=== PATIENT | female | born 1930 | race Caucasian/White ===

== ENCOUNTER 2016-07-13 15:09 | Emergency (ER) | payer OTHER ==
[2016-07-13 15:22] VITALS: TEMP 98.2; BMI 24.4
--- NOTE | 2016-07-13 15:44 | PDOC ---
History of Present Illness - History of Present Illness Initial Comments: 07/13/16 16:06 The pt is a 86 year old female with a PMH of colon Ca, DM type 2, CAD, HDl, hypothyroidism who presents to ED complaining of left knee pain that started yesterday and progressively got worse. The pain is located on external part of her knee, more painful when ambulating. She applied ice without any improvement. She denies joint swelling, fever, erythema, limited ROM. She denies chest pain, SOB, palpitations. She denies N/V, diarrhea, abdominal pain, constipation, dysuria, increased frequency, urgency. 07/13/16 16:11 <Annalee Mendoza - Last Filed: 07/13/16 16:06> - History of Present Illness Initial Comments: 07/13/16 16:18 The patient ambulated a significant degree yesterday. <An Sanchez - Last Filed: 07/13/16 16:18> <Waylon Uriarte - Last Filed: 07/13/16 16:34> - General Chief Complaint: Pain Stated Complaint: LT SIDE PAIN, WEAKNESS Time Seen by Provider: 07/13/16 15:32 Past History - Past Medical History Anemia: No Asthma: No Cancer: Yes (COLON CA SURGERY 2011) Cardiac Disorders: Yes CVA: No COPD: No CHF: No Dementia: No Diabetes: Yes GI Disorders: Yes Disorders: No HTN: Yes Hypercholesterolemia: Yes Liver Disease: No Seizures: No Thyroid Disease: Yes - Surgical History Abdominal Surgery: Yes (COLON RESECTION 2011) Appendectomy: No Cardiac Surgery: No Cholecystectomy: No Lung Surgery: No Neurologic Surgery: No Orthopedic Surgery: Yes (RIGHT THR, FX WRIST) - Immunization History Immunization Up to Date: Yes - Psycho/Social/Smoking Cessation Hx Anxiety: No Suicidal Ideation: No Smoking Status: No Smoking History: Never smoked Have you smoked in the past 12 months: No Number of Cigarettes Smoked Daily: 0 If you are a former smoker, when did you quit?: STOPPED 1994 Information on smoking cessation initiated: No Hx Alcohol Use: No Drug/Substance Use Hx: No Substance Use Type: None Hx Substance Use Treatment: No <Annalee Mendoza - Last Filed: 07/13/16 16:06> <An Sanchez - Last Filed: 07/13/16 16:18> <Waylon Uriarte - Last Filed: 07/13/16 16:34> - Past Medical History Allergies/Adverse Reactions: Allergies Allergy/AdvReac Type Severity Reaction Status Date / Time No Known Drug Allergies Allergy Verified 11/22/13 19:34 Home Medications: Ambulatory Orders Glipizide [Glucotrol -] 20 mg PO DAILY 01/10/12 Insulin (Levemir) [Levemir Flexpen -] 0 units SQ ACDIN 01/10/12 Insulin (Novolog) [Novolog Flexpen -] 0 units SQ AC 01/10/12 Levothyroxine [Synthroid -] 112 mcg PO DAILY 01/10/12 Losartan Potassium 25 mg PO DAILY 01/10/12 Metoprolol Tartrate [Lopressor -] 50 mg PO DAILY 01/14/12 Atorvastatin Calcium [Lipitor] 10 mg PO DAILY 11/27/12 Aspirin [ASA -] 81 mg PO DAILY #0 01/28/14 Guar Gum [Benefiber] 1 each PO BID #0 packet 01/28/14 *Physical Exam - Vital Signs Last Vital Signs Temp Pulse Resp BP Pulse Ox 98.2 F 71 20 122/69 98 07/13/16 15:20 07/13/16 15:20 07/13/16 15:20 07/13/16 15:20 07/13/16 15:20 <Annalee Mendoza - Last Filed: 07/13/16 16:06> - Vital Signs Last Vital Signs Temp Pulse Resp BP Pulse Ox 98.2 F 71 20 122/69 98 07/13/16 15:20 07/13/16 15:20 07/13/16 15:20 07/13/16 15:20 07/13/16 15:20 <An Sanchez - Last Filed: 07/13/16 16:18> - Vital Signs Last Vital Signs Temp Pulse Resp BP Pulse Ox 98.2 F 71 20 122/69 98 07/13/16 15:20 07/13/16 15:20 07/13/16 15:20 07/13/16 15:20 07/13/16 15:20 <Waylon Uriarte - Last Filed: 07/13/16 16:34> *DC/Admit/Observation/Transfer <Annalee Mendoza - Last Filed: 07/13/16 16:06> <An Sanchez - Last Filed: 07/13/16 16:18> <Waylon Uriarte - Last Filed: 07/13/16 16:34> Diagnosis at time of Disposition: Knee pain, left - Referrals Referrals: Steve Adam MD [Primary Care Provider] - Addendum entered and electronically signed by Annalee Mendoza RES 16:59: Progress Note - Progress Note Progress Note: REVIEW OF SYSTEMS CONSTITUTIONAL: Absent: fever, chills, diaphoresis, generalized weakness, malaise, loss of appetite, weight change HEENT: Absent: rhinorrhea, nasal congestion, throat pain, throat swelling, difficulty swallowing, mouth swelling, ear pain, eye pain, visual changes CARDIOVASCULAR: Absent: chest pain, syncope, palpitations, irregular heart rate, lightheadedness , peripheral edema RESPIRATORY: Absent: cough, shortness of breath, dyspnea with exertion, orthopnea, wheezing, stridor, hemoptysis GASTROINTESTINAL: Absent: abdominal pain, abdominal distension, nausea, vomiting, diarrhea, constipation, melena, hematochezia GENITOURINARY: Absent: dysuria, frequency, urgency, hesitancy, hematuria, flank pain, genital pain MUSCULOSKELETAL: pain on left side of the knee, nl ROM in all extremities, crepitus in knee B/L, no swelling in left knee. Absent: myalgia, back pain, neck pain SKIN: Absent: rash, itching, pallor HEMATOLOGIC/IMMUNOLOGIC: Absent: easy bleeding, easy bruising, lymphadenopathy, frequent infections ENDOCRINE: Absent: unexplained weight gain, unexplained weight loss, heat intolerance, cold intolerance NEUROLOGIC: Absent: headache, focal weakness or paresthesias, dizziness, unsteady gait, seizure, mental status changes, bladder or bowel incontinence PSYCHIATRIC: Absent: anxiety, depression, suicidal or homicidal ideation, hallucinations. GENERAL: The patient is awake, alert, and fully oriented, in no acute distress. HEAD: Normal with no signs of trauma. EYES: PERRL, extraocular movements intact, sclera anicteric, conjunctiva clear. No ptosis. ENT: Ears normal, nares patent, oropharynx clear without exudates, moist mucous membranes. NECK: Trachea midline, full range of motion, supple. LUNGS: Breath sounds equal, clear to auscultation bilaterally, no wheezes, no crackles, no accessory muscle use. HEART: Regular rate and rhythm, S1, S2 without murmur, rub or gallop. ABDOMEN: Soft, nontender, nondistended, normoactive bowel sounds, no guarding, no rebound, no hepatosplenomegaly, no masses. EXTREMITIES: 2+ pulses, warm, well-perfused, no edema. NEUROLOGICAL: Normal speech, gait not observed. PSYCH: Normal mood, normal affect. SKIN: Warm, dry, normal turgor, no rashes or lesions noted We ordered x ray of the left knee. Addendum entered and electronically signed by Annalee Mendoza RES 17:01: Progress Note - Progress Note Progress Note: X ray results are negative for fracture or dislocation. We will discharge the pt with the recommendation to f/u with PCP and take Tylenol as needed.
--- NOTE | 2016-07-13 16:01 | PDOC ---
Attending Attestation - Resident Resident Name: Annalee Mendoza - ED Attending Attestation I have performed the following: I have examined & evaluated the patient, The case was reviewed & discussed with the resident, I agree w/resident's findings & plan, Exceptions are as noted - HPI HPI: 07/13/16 15:59 The patient is an 86 year old female with extensive past medical history who presents with left lateral knee pain. She denies injury. The pain is mild. It is worsened by ambulation. No rash. No fever. No swelling of the knee. She does report significant increase in the degree of ambulation that she performed yesterday, and suspects that this is what caused the knee pain. 07/13/16 16:17 - Physicial Exam PE: 07/13/16 16:00 She is well appearing and in no acute distress. No bony knee tenderness. There is mild soft tissue tenderness at the left lateral knee. Normal range of motion. Significant crepitance in bilateral knees with range of motion. She ambulates well. 07/13/16 16:16 - Medical Decision Making 07/13/16 16:16 She is well-appearing and in no acute distress I have an extremely low index of suspicion for acute bony injury I suspect arthritis exacerbation secondary to overexertion yesterday Clinical impression: Acute exacerbation of chronic osteoarthritis of the left knee 07/13/16 16:21 Case discussed in detail with oncoming Emergency Physician including history, physical exam and ancillary studies. Oncoming Emergency Physician has assumed care for the patient and will complete the evaluation and treatment. Discharge Disposition - Diagnosis Knee pain, left - Discharge Dispostion Last Admission D/C Date: 01/19/12
--- NOTE | 2016-07-13 17:07 | PDOC ---
*Physical Exam - Vital Signs Last Vital Signs Temp Pulse Resp BP Pulse Ox 98.2 F 71 20 122/69 98 07/13/16 15:20 07/13/16 15:20 07/13/16 15:20 07/13/16 15:20 07/13/16 15:20 ED Treatment Course - RADIOLOGY Radiology Studies Ordered: Category Date Time Status KNEE 2 POS-LEFT [RAD] Stat Radiology 07/13/16 16:02 Completed Medical Decision Making - Medical Decision Making 07/13/16 17:05 I accidentally signed my previous note. This is a continuation. X ray of left knee is negative for pathology. The pt will be discharged home to take OTV pain medications and f/u with PCP. *DC/Admit/Observation/Transfer Diagnosis at time of Disposition: Knee pain, left - Discharge Dispostion Condition at time of disposition: Good Admit: No - Referrals Referrals: Steve Adam MD [Primary Care Provider] - - Patient Instructions Additional Instructions: Please take Tylenol as needed for pain. See your primary care physician in a week. If your symptoms worsen come to emergency room as soon as possible. - Post Discharge Activity
[2016-07-13 17:30] VITALS: BP 165/84; PULSE 69
== END 2016-07-13 17:30 | disposition short-term general hospital (02) ==
LOC: JER 15:09
DX: M25.562 Pain in left knee (principal); Z85.038 Personal history of other malignant neoplasm of large intestine; E03.9 Hypothyroidism, unspecified; I25.10 Atherosclerotic heart disease of native coronary artery without angina pectoris; E78.00 Pure hypercholesterolemia, unspecified; E11.9 Type 2 diabetes mellitus without complications
CPT/HCPCS: 73560-TC-LT; 99282-25

== ENCOUNTER 2017-09-09 14:35 | Emergency (ER) | payer OTHER ==
--- NOTE | 2017-09-09 15:13 | PDOC ---
History of Present Illness - General History Source: Patient Exam Limitations: No Limitations - History of Present Illness Initial Comments: 09/09/17 17:26 The patient is an 87 year old female with past medical history of colon cancer, type 2 diabetes, CAD (no stents), hypothyroidism, and hyperlipidemia who was sent to the ED by Dr. Valentin for persistent cough and congestion for the past week. The patient states she had the flu last week and has since gotten better, yet her productive cough persists. She states she is producing yellow phlegm and has an associated chest tightness and wheeze. She denies any chest pain or leg swelling. She denies any hemoptysis, fevers, chills, nausea, vomiting, diarrhea, or urinary complaints. <Nani Smith - Last Filed: 09/09/17 17:26> <Ulises Figueroa - Last Filed: 09/09/17 18:57> - General Chief Complaint: Respiratory Stated Complaint: FLU LIKE ILLNESS Time Seen by Provider: 09/09/17 15:09 Past History <Nani Smith - Last Filed: 09/09/17 17:26> - Past Medical History Anemia: No Asthma: No Cancer: Yes (COLON CA SURGERY 2011) Cardiac Disorders: Yes CVA: No COPD: No CHF: No Dementia: No Diabetes: Yes GI Disorders: Yes Disorders: No HTN: Yes Hypercholesterolemia: Yes Liver Disease: No Seizures: No Thyroid Disease: Yes - Surgical History Abdominal Surgery: Yes (COLON RESECTION 2011) Appendectomy: No Cardiac Surgery: No Cholecystectomy: No Lung Surgery: No Neurologic Surgery: No Orthopedic Surgery: Yes (RIGHT THR, FX WRIST) - Immunization History Immunization Up to Date: Yes - Suicide/Smoking/Psychosocial Hx Smoking Status: No Smoking History: Never smoked Have you smoked in the past 12 months: No Number of Cigarettes Smoked Daily: 0 If you are a former smoker, when did you quit?: STOPPED 1994 Hx Alcohol Use: Yes (occasional wine) Drug/Substance Use Hx: No Substance Use Type: None Hx Substance Use Treatment: No <Ulises Figueroa - Last Filed: 09/09/17 18:57> - Past Medical History Allergies/Adverse Reactions: Allergies Allergy/AdvReac Type Severity Reaction Status Date / Time No Known Drug Allergies Allergy Verified 11/22/13 19:34 Home Medications: Ambulatory Orders Glipizide [Glucotrol -] 20 mg PO DAILY 01/10/12 Insulin (Levemir) [Levemir Flexpen -] 14 units SQ ACDIN 01/10/12 Insulin (Novolog) [Novolog Flexpen -] 0 units SQ AC 01/10/12 Levothyroxine [Synthroid -] 112 mcg PO DAILY 01/10/12 Losartan Potassium 25 mg PO DAILY 01/10/12 Metoprolol Tartrate [Lopressor -] 50 mg PO DAILY 01/14/12 Atorvastatin Calcium [Lipitor] 10 mg PO DAILY 11/27/12 Aspirin [ASA -] 81 mg PO DAILY #0 01/28/14 Guar Gum [Benefiber] 1 each PO BID #0 packet 01/28/14 Guaifenesin Dm [Robitussin Dm -] 10 ml PO Q6H #1 bottle 09/09/17 Review of Systems - Review of Systems Able to Perform ROS?: Yes Comments:: 09/09/17 17:26 CONSTITUTIONAL: No reported: Fever, Chills, Diaphoresis, Generalized Weakness, Malaise, Loss of Appetite HEENT: No reported: Rhinorrhea, Nasal Congestion, Throat Pain, Throat Swelling, Difficulty Swallowing, Mouth Swelling, Ear Pain, Eye Pain, Visual Changes CARDIOVASCULAR: No reported: Syncope, Palpitations, Irregular Heart Rate, Lightheadedness, Peripheral Edema RESPIRATORY: (+) productive cough, wheezing, chest tightness No reported: Shortness of Breath, SOB with Exertion, Orthopnea,Stridor, Hemoptysis GASTROINTESTINAL: No reported: Abdominal pain, Abdominal Distension, Nausea, Vomiting, Diarrhea, Constipation, Melena, Hematochezia GENITOURINARY: No reported: Dysuria, Frequency, Urgency, Hesitancy, Flank Pain, Genital Pain MUSCULOSKELETAL: No reported: Myalgia, Arthralgia, Joint Swelling, Back pain, Neck Pain SKIN: No reported: Rash, Itching, Pallor HEMEATOLOGIC/IMMUNOLOGIC: No reported: Easy Bleeding, Easy Bruising, Lymphadenopathy, Frequent infections ENDOCRINE: No reported: Unexplained Weight Gain, Unexplained Weight Loss, Heat Intolerance , Cold Intolerance NEUROLOGIC: No reported: Headache, Focal Weakness, Paresthesias, Vertigo, Lightheadedness, Unsteady Gait, Seizure, Mental Status Changes, Incontinence PSYCHIATRIC: No reported: Anxiety, Depression All Other Systems: Reviewed and Negative <Nani Smith - Last Filed: 09/09/17 17:26> *Physical Exam - Vital Signs Last Vital Signs Temp Pulse Resp BP Pulse Ox 98.2 F 68 16 138/64 100 09/09/17 15:08 09/09/17 15:08 09/09/17 15:08 09/09/17 15:08 09/09/17 15:08 - Physical Exam Comments: 09/09/17 17:26 GENERAL: The patient is awake, alert, and fully oriented, Nontoxic - in no acute distress. HEAD: Normocephalic, atraumatic. EYES: extraocular movements intact, sclera anicteric, conjunctiva clear. ENT: Normal voice, Moist mucous membranes. NECK: Normal range of motion, supple, no jvd LUNGS: wheezing b/l, good air movement, no rales, speaking complete stentnces HEART: Regular rate and rhythm, ABDOMEN: Soft, nontender, normoactive bowel sounds. No guarding, no rebound. No CVA tenderness EXTREMITIES: Normal range of motion, no edema, neg homans, NEUROLOGICAL: No facial assymetry, Normal speech, normal gait, moving all 4 extremities spontaneously and symmetrically PSYCH: Normal mood, normal affect. SKIN: Warm, Dry, normal turgor, <Nani Smith - Last Filed: 09/09/17 17:26> Moderate Sedation - Procedure Monitoring Vital Signs: Vital Signs Temp Pulse Resp BP Pulse Ox 98.2 F 68 16 138/64 100 09/09/17 15:08 09/09/17 15:08 09/09/17 15:08 09/09/17 15:08 09/09/17 15:08 <Nani Smith - Last Filed: 09/09/17 17:26> Heart Score/ECG Review - ECG Impressions Comment:: 09/09/17 18:57 Twelve-lead EKG was performed and reviewed by me. There is normal sinus rhythm with a normal rate. Rate of 65 The axis is normal. The intervals are normal. There is normal R wave progression There are no ST or T wave abnormalities. Impression: Normal twelve-lead EKG <Ulises Figueroa - Last Filed: 09/09/17 18:57> ED Treatment Course - LABORATORY CBC & Chemistry Diagram: 09/09/17 16:02 09/09/17 16:02 - Medications Given in the ED: ED Medications Discontinued Medications Generic Name Dose Route Start Last Admin Trade Name Mitch PRN Reason Stop Dose Admin Albuterol/Ipratropium 1 amp 09/09/17 16:18 09/09/17 17:01 Duoneb - NEB 09/09/17 16:19 1 amp ONCE ONE Administration <Nani Smith - Last Filed: 09/09/17 17:26> - LABORATORY CBC & Chemistry Diagram: 09/09/17 16:02 09/09/17 16:02 <Ulises Figueroa - Last Filed: 09/09/17 18:57> Medical Decision Making - Medical Decision Making 09/09/17 16:19 87y F hx of cad copd, iddm presents with cough/congetion for 1 week, not improved with abx, no associated cp, juarez, fever/chills. noted to be coughing/ wheezing and sent to the ED by cardiology. on exam pt well appearing in no distress, +miold wheezing,no focal rales on exam suspect uri vs pna will ck lbasic labs and cxr will reassess A portion of this note was documented by scribe services under my direction. I have reviewed the details of the note, within reason, and agree with the documentation with the following case summary and management plan written by me 09/09/17 18:18 no acute infiltrate on cxr labs unremarkable will give pt a course of robitussin dm pmd fu in 3-4 days I discussed the physical exam findings, ancillary test results and final diagnoses with the patient. I answered all of the patient's questions. The patient was satisfied with the care received and felt comfortable with the discharge plan and treatment plan. The patient will call their primary care physician within 24 hours to arrange follow-up and will return to the Emergency Department with any new, persistent or worsening symptoms. <Ulises Figueroa - Last Filed: 09/09/17 18:57> *DC/Admit/Observation/Transfer - Attestations Scribe Attestion: 09/09/17 17:27 Documentation prepared by Nani Smith, acting as medical lab scientist for Ulises Figueroa MD. <Nani Smith - Last Filed: 09/09/17 17:26> - Discharge Dispostion Decision to Admit order: No <Henry,Ulises - Last Filed: 09/09/17 18:57> Diagnosis at time of Disposition: Upper respiratory infection Qualifiers: URI type: acute nasopharyngitis (common cold) Qualified Code(s): J00 - Acute nasopharyngitis [common cold] - Discharge Dispostion Disposition: HOME Condition at time of disposition: Good - Prescriptions Prescriptions: Guaifenesin Dm [Robitussin Dm -] 10 ml PO Q6H #1 bottle - Referrals Referrals: Jasmine Blood MD [Staff Physician] - - Patient Instructions Printed Discharge Instructions: DI for Acute Bronchitis Additional Instructions: Return to the emergency department immediately with ANY new, persistent or worsening symptoms including fever, chills, shortness of breath, chest pain or other concerns. Tkae your albuterol as needed up to every 4 hrs. Take the guafenicin as needed. You MUST call and follow up with your doctor in 3-4 days for further evaluation of your symptoms. Results were discussed with you. Please make sure your doctor reviews the results of your emergency evaluation.
[2017-09-09 15:45] VITALS: BP 138/64; PULSE 68; TEMP 98.2; BMI 24.1
[2017-09-09] MEDS ORDERED: ALBUTEROL SO4 2.5/IPRATROPIUM 0.5 INH SOL 3 ML VIAL.NEB. NEB ONE ×2 (16:18→16:58)
[2017-09-09 17:38] LABS: BASO % 0.4 % (0-2.0); EOS % 2.5 % (0-4.5); HEMATOCRIT 35.5 % (32.4-45.2); HEMOGLOBIN 12.4 GM/dl (10.7-15.3); LYMPH % 29.6 % (8-40); MCH 32.6 pg (25.7-33.7); MCHC 35.1 g/dl (32.0-36.0); MEAN CELL VOLUME 92.8 fl (80-96); MEAN PLT VOLUME 9.1 fl (7.5-11.1); MONO % 8.2 % (3.8-10.2); NEUT % 59.3 % (42.8-82.8); PLATELET COUNT 290 K/MM3 (134-434); RBC 3.82 M/mm3 (3.60-5.2); RDW 13.6 % (11.6-15.6)
[2017-09-09 17:44] LABS: ALBUMIN 3.5 g/dl (3.5-5.0); ALK PHOS 79 U/L (32-92); ANION GAP 5 (8-16); BLOOD UREA NITROGEN 15 mg/dl (7-18); CALCIUM 9.1 mg/dl (8.4-10.2); CHLORIDE 99 mmol/L (98-107); CO2 27 mmol/L (22-28); CREATININE 0.9 mg/dl (0.6-1.3); GLUCOSE,RANDOM 242 mg/dl (74-106); POTASSIUM 4.1 mmol/L (3.5-5.1); SGOT/AST 19 U/L (10-42); SGPT/ALT 17 U/L (10-40); SODIUM 131 mmol/L (136-145); TOT PROT 6.4 g/dl (6.4-8.3)
[2017-09-09 18:01] LABS: BILIRUBIN,TOTAL < 0.5 mg/dl (0.2-1.0)
--- NOTE | 2017-09-10 16:21 | EKG ---
Test Reason : Blood Pressure : / mmHG Vent. Rate : 065 BPM Atrial Rate : 065 BPM P-R Int : 194 ms QRS Dur : 088 ms QT Int : 394 ms P-R-T Axes : 082 018 057 degrees QTc Int : 409 ms NORMAL SINUS RHYTHM NORMAL ECG WHEN COMPARED WITH ECG OF 15-JAN-2012 09:41, NO SIGNIFICANT CHANGE WAS FOUND Confirmed by MD Nolan Daniel ([id number]) on 09/10/2017 4:20:59 PM Referred By: REGAN Confirmed By:Hiro Nolan MD
== END 2017-09-09 18:37 | disposition home or self-care (01) ==
LOC: FER 14:35
PROC: 3E0F7GC Introduction of Other Therapeutic Substance into Respiratory Tract, Via Natural or Artificial Opening (ICD-10-PCS; principal; 2017-09-09)
DX: J00 Acute nasopharyngitis [common cold] (principal); E11.9 Type 2 diabetes mellitus without complications; Z79.4 Long term (current) use of insulin; I10 Essential (primary) hypertension; Z85.038 Personal history of other malignant neoplasm of large intestine; Z87.891 Personal history of nicotine dependence
CPT/HCPCS: 36415; 71046-TC-FY; 80053; 85025; 93005; 94640; 99281-25

== ENCOUNTER 2017-10-11 17:48 | Emergency (ER) | payer OTHER ==
--- NOTE | 2017-10-11 18:34 | PDOC ---
Rapid Medical Evaluation Time Seen by Provider: 10/11/17 18:31 Medical Evaluation: Allergies Allergy/AdvReac Type Severity Reaction Status Date / Time No Known Drug Allergies Allergy Verified 10/11/17 18:30 10/11/17 18:31 I have performed a brief in-person evaluation of this patient. The patient presents with a chief complaint of: L hip pain s/p mechanical fall yesterday. Seen in [facility] today and dx w/ possible xray L hip. Told to come into ED for possible CT. Pt states she left XR disc/report at home. H/o R THR and DM Pertinent physical exam findings:Bearing weight w/ cane, in NAD I have ordered the following:xray The patient will proceed to the ED for further evaluation Discharge Disposition - Diagnosis Hip injury Qualifiers: Encounter type: initial encounter Laterality: left Qualified Code(s): S79.912A - Unspecified injury of left hip, initial encounter - Referrals - Patient Instructions - Post Discharge Activity
[2017-10-11 18:35] VITALS: BP 117/57; PULSE 87; TEMP 98.3; BMI 24.0
--- NOTE | 2017-10-11 20:57 | PDOC ---
Attending Attestation - Resident Resident Name: AlexElliot - ED Attending Attestation I have performed the following: I have examined & evaluated the patient, The case was reviewed & discussed with the resident, I agree w/resident's findings & plan, Exceptions are as noted - Medical Decision Making 10/11/17 20:49 87yoF sent for further eavluation of isolated L greater trochanteric fx of femur. Pt is ambulating in the ER w/ cane and is asking to be discharged. - CT pelvis ordered by triage LIDAR SCIENTIST/PA reviewed, no e/o intertrochanteric fx. Awaiting final report from rads. - crutches w/ reduced weight bearing, activity as tolerated, close f/u w/ orthopedics. <Alysia Alaniz - Last Filed: 10/11/17 20:49> - HPI HPI: 10/12/17 00:58 Patient is an 87 year old female with a significant past medical history of colon Ca, DM type 2, CAD, HDl, hypothyroidism, who presents to the ED with complaints of left pain, s/p fall that occured yesterday afternoon. Patient reports falling onto the floor yesterday afternoon after twisting her over her leg causing immediate pain. She reports icing her left hip all day yesterday for the pain with minimal relief. Patient reports going to [facility] this afternoon for x rays of her hip who then advised her to come into the ED for CT and further evaluation. Denies chest pain, Sob. Denies nausea, vomiting. Denies head trauma, change vision, Denies contact with sick individuals, out of state travelling. Denies fever, chills. Denies any other symptoms. Allergies: None Social history: No smoking. No alcohol. No illicit drugs. Surgical history: Colon resection, 2011, Right THR, Fx Wrist. PMD: Dr. Jasmine Blood. - Physicial Exam PE: 10/12/17 00:58 General Physical Exam: NAD EOMI, YING MMM, OP WNL NCAT, no midline cervical tenderness RRR, nl s1/s2, no m/r/g CTABL, no w/r/r Soft, NTND No edema, WWP, no rash Neuro grossly intact, ambulating with cane, while favoring left leg, moving all 4 A&O x 3, mood/affect WNL. <Flaco Lindo Last Filed: 10/12/17 00:58>
--- NOTE | 2017-10-11 21:04 | PDOC ---
History of Present Illness - General Chief Complaint: Revisit,Radiology Variance Stated Complaint: HIP PAIN Time Seen by Provider: 10/11/17 18:31 History Source: Patient Exam Limitations: No Limitations - History of Present Illness Initial Comments: 10/11/17 20:58 Patient is an 87F with history of DM, CAD, HTN, HLD, hypothyroidism here today complaining of left hip pain after a fall. She states that she fell while twisting over her left leg. Denies chest pain, shortness of breath, hitting head , neck pain, and loss of consciousness. She says that her hip hurt, but was able to ambulate using her cane with pain. Denies fevers, chills, nausea, vomiting. Patient went to [facility] which showed left greater trochanter fracture with instructions to get CT scan. Past History - Past Medical History Allergies/Adverse Reactions: Allergies Allergy/AdvReac Type Severity Reaction Status Date / Time No Known Drug Allergies Allergy Verified 10/11/17 18:30 Home Medications: Ambulatory Orders Glipizide [Glucotrol -] 20 mg PO DAILY 01/10/12 Insulin (Levemir) [Levemir Flexpen -] 14 units SQ ACDIN 01/10/12 Insulin (Novolog) [Novolog Flexpen -] 0 units SQ AC 01/10/12 Levothyroxine [Synthroid -] 112 mcg PO DAILY 01/10/12 Losartan Potassium 25 mg PO DAILY 01/10/12 Metoprolol Tartrate [Lopressor -] 50 mg PO DAILY 01/14/12 Atorvastatin Calcium [Lipitor] 10 mg PO DAILY 11/27/12 Aspirin [ASA -] 81 mg PO DAILY #0 01/28/14 Guar Gum [Benefiber] 1 each PO BID #0 packet 01/28/14 Guaifenesin Dm [Robitussin Dm -] 10 ml PO Q6H #1 bottle 09/09/17 Anemia: No Asthma: No Cancer: Yes (COLON CA SURGERY 2011) Cardiac Disorders: Yes CVA: No COPD: No CHF: No Dementia: No Diabetes: Yes GI Disorders: Yes Disorders: No HTN: Yes Hypercholesterolemia: Yes Liver Disease: No Seizures: No Thyroid Disease: Yes - Surgical History Abdominal Surgery: Yes (COLON RESECTION 2011) Appendectomy: No Cardiac Surgery: No Cholecystectomy: No Lung Surgery: No Neurologic Surgery: No Orthopedic Surgery: Yes (RIGHT THR, FX WRIST) - Immunization History Immunization Up to Date: Yes - Suicide/Smoking/Psychosocial Hx Smoking Status: No Smoking History: Never smoked Have you smoked in the past 12 months: No Number of Cigarettes Smoked Daily: 0 If you are a former smoker, when did you quit?: STOPPED 1994 Hx Alcohol Use: Yes (occasional wine) Drug/Substance Use Hx: No Substance Use Type: None Hx Substance Use Treatment: No Review of Systems - Review of Systems Comments:: 10/11/17 21:00 GENERAL/CONSTITUTIONAL: No fever or chills. No weakness. HEAD, EYES, EARS, NOSE AND THROAT: No change in vision. No sore throat. CARDIOVASCULAR: No chest pain or shortness of breath RESPIRATORY: No cough, wheezing, or hemoptysis. GASTROINTESTINAL: No nausea, vomiting, diarrhea or constipation. GENITOURINARY: No dysuria, frequency, or change in urination. MUSCULOSKELETAL: +L hip pain. No neck or back pain. SKIN: No rash NEUROLOGIC: No headache, vertigo, loss of consciousness, or change in strength/ sensation. ENDOCRINE: No increased thirst. No abnormal weight change HEMATOLOGIC/LYMPHATIC: No anemia, easy bleeding, or history of blood clots. ALLERGIC/IMMUNOLOGIC: No hives or skin allergy. *Physical Exam - Vital Signs Last Vital Signs Temp Pulse Resp BP Pulse Ox 98.3 F 87 19 117/57 100 10/11/17 18:30 10/11/17 18:30 10/11/17 18:30 10/11/17 18:30 10/11/17 18:30 - Physical Exam Comments: 10/11/17 21:00 GENERAL: Awake, alert, and fully oriented, in no acute distress HEAD: No signs of trauma, normocephalic, atraumatic EYES: PERRLA, EOMI, sclera anicteric, conjunctiva clear ENT: Auricles normal inspection, hearing grossly normal, nares patent, oropharynx clear without exudates. Moist mucosa NECK: Normal ROM, supple, no lymphadenopathy, JVD, or masses LUNGS: No distress, speaks full sentences, clear to auscultation bilaterally HEART: Regular rate and rhythm, normal S1 and S2, no murmurs, rubs or gallops, peripheral pulses normal and equal bilaterally. EXTREMITIES: Normal inspection, Normal range of motion, no edema. No clubbing or cyanosis. Tender over lateral hip, walking with cane with minimal pain. NEUROLOGICAL: Cranial nerves II through XII grossly intact. Normal speech, normal gait, no focal sensorimotor deficits SKIN: Warm, Dry, normal turgor, no rashes or lesions noted. Medical Decision Making - Medical Decision Making 10/11/17 21:01 Patient is 87F with history of DM, HTN, CAD, HLD, hypothyroidism here today with hip pain. CT scan ordered. Patient appears well, able to ambulate, do not suspect patient will require operative repair. Pending CT read. 10/11/17 21:10 CT shows an acute greater trochanteric fracture, suggests doing MRI to evaluate for occult intertrochanteric fracture. Ortho paged for recommendations on need for MRI. 10/11/17 21:22 Patient is refusing to do MRI, states that she wants to do it as an outpatient. Patient is of sound mind and understands consequences of decisions. Fitted for crutches, told to weight bear as little as possible. Given orthopedic follow up. *DC/Admit/Observation/Transfer Diagnosis at time of Disposition: Hip fracture - Discharge Dispostion Disposition: AGAINST MEDICAL ADVICE Condition at time of disposition: Good Decision to Admit order: No - Referrals Referrals: Jasmine Blood MD [Primary Care Provider] - Travis Aguirre MD [Staff Physician] - - Patient Instructions Printed Discharge Instructions: DI for Hip Fracture Additional Instructions: You were seen today in the ED for a hip fracture. You need an MRI for further evaluation of your hip. Please call the orthopedic doctor in your paperwork or your prior orthopedic doctor as soon as possible to set up an appointment. - Post Discharge Activity
== END 2017-10-11 21:30 | disposition left against medical advice (07) ==
LOC: JER 17:48
DX: S72.115A Nondisplaced fracture of greater trochanter of left femur, initial encounter for closed fracture (principal); W18.39XA Other fall on same level, initial encounter; Y93.89 Activity, other specified; Y92.89 Other specified places as the place of occurrence of the external cause; Y99.8 Other external cause status; I11.9 Hypertensive heart disease without heart failure; Z79.4 Long term (current) use of insulin; Z79.84 Long term (current) use of oral hypoglycemic drugs; E78.00 Pure hypercholesterolemia, unspecified; E03.9 Hypothyroidism, unspecified; I25.10 Atherosclerotic heart disease of native coronary artery without angina pectoris; R26.89 Other abnormalities of gait and mobility; Z99.89 Dependence on other enabling machines and devices; Z85.038 Personal history of other malignant neoplasm of large intestine
CPT/HCPCS: 72192-TC; 99282-25

== ENCOUNTER 2019-03-04 10:31 | Inpatient (IN) | payer OTHER ==
[2019-03-04] MEDS ORDERED: SODIUM CHLORIDE 0.9% 1000 ML INFUS.BAG IV ONE ×2 (11:04→14:24)
[2019-03-04] MEDS ORDERED: dilTIAZem HCL 50 MG/10 ML - 10 ML VIAL IVPUSH ONE (11:07)
[2019-03-04] MEDS ORDERED: dilTIAZem HCL 125 MG/25 ML - 25 ML VIAL ONE (11:22)
[2019-03-04 11:37] LABS: BASO % 0.6 % (0-2.0); EOS % 0.9 % (0-4.5); HEMATOCRIT 38.7 % (32.4-45.2); HEMOGLOBIN 12.8 GM/dL (10.7-15.3); LYMPH % 12.5 % (8-40); MCH 30.7 pg (25.7-33.7); MCHC 33.2 g/dl (32.0-36.0); MEAN CELL VOLUME 92.6 fl (80-96); MEAN PLT VOLUME 10.2 fl (7.5-11.1); MONO % 5.7 % (3.8-10.2); NEUT % 80.3 % (42.8-82.8); PLATELET COUNT 300 K/MM3 (134-434); RBC 4.18 M/mm3 (3.60-5.2); RDW 14.1 % (11.6-15.6); WHITE BLOOD COUNT 13.4 K/mm3 (4.0-10.0)
[2019-03-04 12:03] LABS: INR 0.98 (0.83-1.09); PROTHROMBIN TIME (PATIENT) 11.6 SEC (9.7-13.0)
[2019-03-04 12:06] LABS: ACTIVATED PTT 27.6 SECONDS (25.2-36.5)
[2019-03-04 12:14] LABS: ALBUMIN 3.6 g/dl (3.4-5.0); BILIRUBIN,TOTAL 0.6 mg/dL (0.2-1); BLOOD UREA NITROGEN 26.5 mg/dL (7-18); CALCIUM 9.4 mg/dL (8.5-10.1); CREATININE 1.1 mg/dL (0.55-1.3); POTASSIUM 3.7 mmol/L (3.5-5.1)
--- NOTE | 2019-03-04 13:41 | PDOC ---
Documentation entered by Karen Alcantara SCRIBE, acting as scribe for Marlin Kaye MD. Marlin Kaye MD: This documentation has been prepared by the Quinton jacobo Xhesika, SCRIBE, under my direction and personally reviewed by me in its entirety. I confirm that the documentation accurately reflects all work, treatment, procedures, and medical decision making performed by me. History of Present Illness - General Chief Complaint: Blood Sugar Problem Stated Complaint: HIGH SUGAR/HYPERTENSION History Source: Patient Exam Limitations: No Limitations - History of Present Illness Initial Comments: 03/04/19 11:21 The patient is a 88 year old female with a significant PMH of DM (insulin 4x a day), CAD, HTN, HLD, hypothyroidism, colon cancer who presents to the emergency department for rapid heart rate in the 180s. Patient notes she has been having a headache and upset stomach for the past 3 days since she had so many sweets at a dinner on Saturday (03/01/19) . As per son, the patients glucose has been high (411- 500s) the last few days. Son notes the patient took 2 nitroglycerin and her insulin this morning. Patient notes she has only been eating cereal. The patient denies chest pain, shortness of breath, lightheadedness and dizziness. Denies fever, chills, cough, nausea, vomiting, diarrhea and constipation. Denies dysuria, frequency, urgency and hematuria. Allergies: NKDA Past surgical history: colon resection (2011) Cards: Dr. Valentin Past History - Past Medical History Allergies/Adverse Reactions: Allergies Allergy/AdvReac Type Severity Reaction Status Date / Time No Known Drug Allergies Allergy Verified 03/04/19 10:47 Home Medications: Ambulatory Orders Glipizide [Glucotrol -] 20 mg PO DAILY 01/10/12 Insulin (Levemir) [Levemir Flexpen -] 14 units SQ ACDIN 01/10/12 Insulin (Novolog) [Novolog Flexpen -] 0 units SQ AC 01/10/12 Levothyroxine [Synthroid -] 112 mcg PO DAILY 01/10/12 Losartan Potassium 25 mg PO DAILY 01/10/12 Metoprolol Tartrate [Lopressor -] 50 mg PO DAILY 01/14/12 Atorvastatin Calcium [Lipitor] 10 mg PO DAILY 11/27/12 Aspirin [ASA -] 81 mg PO DAILY #0 01/28/14 Guar Gum [Benefiber] 1 each PO BID #0 packet 01/28/14 Guaifenesin Dm [Robitussin Dm -] 10 ml PO Q6H #1 bottle 09/09/17 Anemia: No Asthma: No Cancer: Yes (COLON CA SURGERY 2011) Cardiac Disorders: Yes CVA: No COPD: No CHF: No Dementia: No Diabetes: Yes GI Disorders: Yes Disorders: No HTN: Yes Hypercholesterolemia: Yes Liver Disease: No Seizures: No Thyroid Disease: Yes - Surgical History Abdominal Surgery: Yes (COLON RESECTION 2011) Appendectomy: No Cardiac Surgery: No Cholecystectomy: No Lung Surgery: No Neurologic Surgery: No Orthopedic Surgery: Yes (RIGHT THR, FX WRIST) - Immunization History Immunization Up to Date: Yes - Psycho Social/Smoking Cessation Hx Smoking Status: No Smoking History: Never smoked Have you smoked in the past 12 months: No Number of Cigarettes Smoked Daily: 0 If you are a former smoker, when did you quit?: STOPPED 1994 Information on smoking cessation initiated: No Hx Alcohol Use: No Drug/Substance Use Hx: No Substance Use Type: None Hx Substance Use Treatment: No Review of Systems - Review of Systems Able to Perform ROS?: Yes Comments:: 03/04/19 11:23 GENERAL/CONSTITUTIONAL: No fever or chills. No weakness. HEAD, EYES, EARS, NOSE AND THROAT: No change in vision. No ear pain or discharge. No sore throat. CARDIOVASCULAR: +rapid heart rate. No chest pain or shortness of breath. RESPIRATORY: No cough, wheezing, or hemoptysis. GASTROINTESTINAL: +upset stomach. No nausea, vomiting, diarrhea or constipation. GENITOURINARY: No dysuria, frequency, or change in urination. MUSCULOSKELETAL: No joint or muscle swelling or pain. No neck or back pain. SKIN: No rash NEUROLOGIC: + headache.No vertigo, loss of consciousness, or change in strength/ sensation. ENDOCRINE: No increased thirst. No abnormal weight change. HEMATOLOGIC/LYMPHATIC: No anemia, easy bleeding, or history of blood clots. ALLERGIC/IMMUNOLOGIC: No hives or skin allergy. *Physical Exam - Vital Signs Last Vital Signs Temp Pulse Resp BP Pulse Ox 179 H 19 103/56 L 99 03/04/19 10:40 03/04/19 10:40 03/04/19 10:40 03/04/19 10:40 - Physical Exam Comments: 03/04/19 13:35 Awake alert no acute distress heart is regular tachycardia no murmurs rubs or gallops lungs are clear bilaterally abdomen is soft nontender extremities are warm well perfused there is no noted peripheral edema symmetric 2+ pulses. Patient is awake alert and oriented x3 Heart Score/ECG Review #1 ECG reviewed & interpreted by me at: 13:52 Compared to previous ECG there are: Other (afib with rvr rate 186 bpm, st depression, II, III, avf.) #2 General ECG Interpretation: Sinus Rhythm, Normal Rate, Normal Intervals, No acute ischemic changes (81) ED Treatment Course - LABORATORY CBC & Chemistry Diagram: 03/04/19 11:18 03/04/19 11:18 - ADDITIONAL ORDERS Additional order review: Laboratory Results 03/04/19 03/04/19 03/04/19 11:18 11:18 11:18 PT with INR 11.60 INR 0.98 PTT (Actin FS) 27.6 Sodium 131 L Potassium 3.7 Chloride 93 L Carbon Dioxide 30 Anion Gap 9 BUN 26.5 H Creatinine 1.1 Est GFR (CKD-EPI)AfAm 51.55 Est GFR (CKD-EPI)NonAf 44.48 Random Glucose 292 H Calcium 9.4 Total Bilirubin 0.6 AST 36 ALT 25 Alkaline Phosphatase 98 Creatine Kinase 386 H Troponin I 0.19 H Total Protein 7.0 Albumin 3.6 Beta-Hydroxybutyrate 7.9 H 03/04/19 11:18 RBC 4.18 MCV 92.6 MCHC 33.2 RDW 14.1 MPV 10.2 Neutrophils % 80.3 D Lymphocytes % 12.5 D Monocytes % 5.7 Eosinophils % 0.9 Basophils % 0.6 - RADIOLOGY Radiology Studies Ordered: Category Date Time Status HEAD CT WITHOUT CONTRAST [CT] Stat CT Scan 03/04/19 11:08 Completed CHEST X-RAY PORTABLE* [RAD] Stat Radiology 03/04/19 11:05 Completed - Medications Given in the ED: ED Medications Discontinued Medications Generic Name Dose Route Start Last Admin Trade Name Freq PRN Reason Stop Dose Admin Diltiazem HCl 20 mg 03/04/19 11:07 03/04/19 11:28 Cardizem Injection - IVPUSH 03/04/19 11:08 20 mg ONCE ONE Administration Sodium Chloride 1,000 ml 03/04/19 11:04 03/04/19 11:11 Normal Saline - IV 03/04/19 11:05 1,000 ml ONCE ONE Administration Medical Decision Making - Medical Decision Making 03/04/19 13:35 88-year-old female history of hypertension here with complaints of headache decreased appetite nausea for the last 4 days. Patient states that she had too much sugar or sweets at an event 4 days ago since then has been having nausea very high blood sugars which she has been giving herself extra insulin. Today she felt like she was having difficulty with breathing and felt like she needed to take nitroglycerin for which her son gave her to was then sent to the ED. No known history of atrial fibrillation on arrival to ED patient's he was found to be with a heart rate of 188 asymptomatic EKG showed supraventricular tachycardia likely A. fib discussion with patient's boiler helper Dr. Valentin no known history of atrial fibrillation. She was given 20 mg of IV diltiazem for rate control her heart heart rate subsequent improved to the 80s and 90s patient will be admitted to telemetry. Due to the concerns that she had a headache a CT head was ordered subsequent unremarkable she will be given aspirin for her shortness of breath and concerns for anginal equivalent and will be admitted to telemetry 03/04/19 13:42 pt with heart rate improvement with diltiazem. however trop positive 0.19. consulted Dr Zhou. will see pt in ed. Discharge - Discharge Information Problems reviewed: Yes Clinical Impression/Diagnosis: Atrial fibrillation with RVR - Admission Yes - Follow up/Referral Referrals: Jasmine Blood MD [Primary Care Provider] - - Patient Discharge Instructions - Post Discharge Activity
[2019-03-04] MEDS ORDERED: ASPIRIN 81 MG CHEWABLE TABLETS PO ONE (13:54)
[2019-03-04] MEDS ORDERED: ASPIRIN 81 MG CHEWABLE TABLETS ONE (14:03)
--- NOTE | 2019-03-04 14:07 | HP ---
Admitting History and Physical - Primary Care Physician PCP: Jasmine Blood - Admission Chief Complaint: elevated sugars History of Present Illness: - History of Present Illness Initial Comments: 03/04/19 11:21 The patient is a 88 year old female with a significant PMH of DM (insulin 4x a day), CAD, HTN, HLD, hypothyroidism, colon cancer who presents to the emergency department for rapid heart rate in the 180s. Patient notes she has been having a headache and upset stomach for the past 3 days since she had so many sweets at a dinner on Saturday (03/01/19) . As per son, the patients glucose has been high (411- 500s) the last few days. Son notes the patient took 2 nitroglycerin and her insulin this morning. Patient notes she has only been eating cereal. The patient denies chest pain, shortness of breath, lightheadedness and dizziness. Denies fever, chills, cough, nausea, vomiting, diarrhea and constipation. Denies dysuria, frequency, urgency and hematuria. Allergies: NKDA Past surgical history: colon resection (2011) Cards: Dr. Valentin Pt examined by me in ER Found to have SVT in ER-- broke with Cardizem IV push Denies palpitations Appears confused no chest pain or dizziness also c/o dull aching pain in forehead-- no blurry vision History Source: Patient Limitations to Obtaining History: No Limitations - Past Medical History Cardiovascular: Yes: CAD, HTN, Hyperlipdemia Endocrine: Yes: Diabetes Mellitus, Hypothyroidism - Smoking History Smoking history: Never smoked Have you smoked in the past 12 months: No Aproximately how many cigarettes per day: 0 If you are a former smoker, when did you quit?: STOPPED 1994 - Alcohol/Substance Use Hx Alcohol Use: No Home Medications - Allergies Allergies/Adverse Reactions: Allergies Allergy/AdvReac Type Severity Reaction Status Date / Time No Known Drug Allergies Allergy Verified 03/04/19 10:47 - Home Medications Home Medications: Ambulatory Orders Glipizide [Glucotrol -] 5 mg PO TID 01/10/12 Insulin (Levemir) [Levemir Flexpen -] 10 units SQ HS 01/10/12 Insulin (Novolog) [Novolog Flexpen -] 4 units SQ AC 01/10/12 Losartan Potassium 25 mg PO DAILY 01/10/12 Metoprolol Tartrate [Lopressor -] 50 mg PO DAILY 01/14/12 Atorvastatin Calcium [Lipitor] 10 mg PO HS 11/27/12 Aspirin [ASA -] 81 mg PO DAILY #0 01/28/14 Isosorbide Mononitrate [Isosorbide Mononitrate ER] 120 mg PO DAILY 03/04/19 Levothyroxine [Synthroid -] 125 mcg PO DAILY 03/04/19 Sitagliptin Phos/Metformin HCl [Janumet 50-500 mg Tablet] 1 tab PO DAILY Review of Systems - Review of Systems Constitutional: denies: Chills, Fever, Weakness Cardiovascular: denies: Chest Pain, Palpitations, Shortness of Breath Respiratory: denies: Cough Physical Examination Vital Signs: Vital Signs Temperature 97.3 F L 03/04/19 11:13 Pulse Rate 96 H 03/04/19 11:28 Respiratory Rate 18 03/04/19 11:28 Blood Pressure 109/53 L 03/04/19 11:28 O2 Sat by Pulse Oximetry (%) 92 L 03/04/19 11:29 Constitutional: Yes: No Distress, Calm Cardiovascular: Yes: Tachycardia Respiratory: Yes: CTA Bilaterally Gastrointestinal: Yes: Normal Bowel Sounds, Soft. No: Tenderness, Tenderness, Epigastrium, Tenderness, Rebound Edema: No Neurological: Yes: Alert Labs: CBC, BMP 03/04/19 11:18 03/04/19 11:18 Imaging - Results Chest X-ray: Image Reviewed (clear) Cat Scan: Report Reviewed (CT head negative) EKG: Image Reviewed (SVT) Problem List - Problems (1) SVT (supraventricular tachycardia) Code(s): I47.1 - SUPRAVENTRICULAR TACHYCARDIA (2) Demand ischemia Code(s): I24.8 - OTHER FORMS OF ACUTE ISCHEMIC HEART DISEASE (3) Metabolic encephalopathy Code(s): G93.41 - METABOLIC ENCEPHALOPATHY (4) UTI (urinary tract infection) Code(s): N39.0 - URINARY TRACT INFECTION, SITE NOT SPECIFIED Assessment/Plan PLAN IV fluids rate controlled continue with Lorpessor Check Ua and culture check TSH Insulin sliding scale spoke with cardiology trend cardiac enzymes
[2019-03-04 14:41] LABS: EPI CELLS 1.5 /HPF (0-5/HPF); HYALINE CASTS 1 /lpf (0-8); PH,URINE 7.5 (5.0-8.0); URINE APPEARANCE CLEAR; URINE BILIRUBIN NEGATIVE (NEGATIVE); URINE COLOR YELLOW; URINE GLUCOSE (UA) 1+ (NEGATIVE); URINE KETONE TRACE (NEGATIVE); URINE LEUK ESTERASE TRACE (NEGATIVE); URINE NITRITE NEGATIVE (NEGATIVE); URINE PROTEIN NEGATIVE (NEGATIVE); URINE RBC 1 /hpf (0-4); URINE WBC 6 /hpf (0-5)
[2019-03-04] MEDS ORDERED: INSULIN (LEVEMIR) 100 UNITS/ML UNITS SQ ONE (16:21)
[2019-03-04] MEDS: INSULIN (LEVEMIR) 100 UNITS/ML UNITS SQ SCH (16:22)
[2019-03-04] MEDS: INSULIN SLIDING SCALE (NOVOLOG) 1 VIAL SQ SCH ×2 (16:23→21:31)
[2019-03-04 16:55] VITALS: BMI 22.4
[2019-03-04] MEDS ORDERED: PNEUMOC 13-VAL CONJ-DIP CRM/PF 0.5 ML DISP.SYRIN IM ONE (16:55)
--- NOTE | 2019-03-04 17:51 | CONS ---
DATE OF CONSULTATION: DATE OF DICTATION: 03/04/2019 CARDIOLOGY CONSULTATION CONSULTATION REQUESTED BY: Marlin Kaye M.D. CHIEF COMPLAINT: 1. Headaches for the past 3 days. 2. Poorly controlled blood sugar. 3. History of visual disturbances. 4. Chin discomfort. HISTORY OF PRESENT ILLNESS: The patient is an 88-year-old white female who has a long-standing history of insulin-dependent diabetes mellitus, coronary artery disease, angina pectoris, hypertension, hypertensive cardiovascular disease, hypothyroidism, chronic obstructive pulmonary disease, history of ventricular premature beats, chronic low back syndrome. The patient states that Saturday and Saturday she went to 2 different functions and was involved in poor dietary compliance. Her son checked her blood sugar and it was 500 mg/dL, and he injected her with Levemir insulin and was able to bring the sugar down to about 140, but later the sugars go, requiring further insulin injections. She developed persistent frontal headaches that were accompanied by mild visual disturbances, and the patient complained of fatigue and stayed in bed for the past 3 days. She was not eating or drinking fluids. In view of ongoing headaches, the son decided to bring her to the emergency room. On questioning, the patient says that prior to coming to the emergency room, she experienced discomfort in her chin and she took 2 sublingual nitroglycerin, with relief. There is no history of palpitations, lightheadedness, dizziness, presyncope or syncope. No history of chest pain or discomfort either at rest or with exertion. No history of dyspnea, and denies having paroxysmal nocturnal dyspnea or orthopnea. No history of cough or expectoration. She has chronic rhinorrhea of undetermined etiology. In the emergency room, she was noted to have supraventricular tachycardia at a rate of 186 beats per minute, with ST-segment depression in the inferolateral leads consistent with ischemia. The tachycardia abated after receiving IV diltiazem. PAST MEDICAL HISTORY: As mentioned in the history of present illness. PAST SURGICAL HISTORY: 1. Status post laparoscopic partial colectomy in 2011 for colonic polyps. 2. History of surgical intervention for fracture of the right wrist. SOCIAL HISTORY: She is retired. She was a [employer] employee. She has 1 daughter and 5 sons who are healthy. She smoked from the age of 14 and stopped 30 years ago. She used to smoke 1/2 pack of cigarettes per day. She has a glass of wine mostly every other day, and at times more than 1 glass. FAMILY HISTORY: Father when she was 1 years of age, apparently in a boating accident. Mother at the age of 90; her medical history is not known to her. She had 2 brothers and 2 sisters. One brother at the age of 90 and the other brother is alive and is 95 years of age. Cause of demise is not known. One of her sisters is at the age of 85. The other one is 80 years of age. There is a family history of deafness. ALLERGIES: None reported. MEDICATIONS: As noted on January 29, 2019: 1. Toprol XL 50 mg p.o. daily at bedtime. 2. Losartan 25 mg p.o. daily. 3. Isosorbide mononitrate 60 mg 1-1/2 tablets p.o. daily. 4. Synthroid 112 mcg p.o. daily. 5. Nitrostat 0.4 mg sublingual p.r.n. for chest discomfort. 6. Levemir insulin according to sliding scale and the dose varies between 10 and 14 units subcutaneous at bedtime. 7. NovoLog FlexPen on a sliding scale and dose varies between 5 and 9 units 3 times a day a.c. 8. Ambien 10 mg 1/2 tablet p.o. daily at bedtime. 9. Aspirin 81 mg p.o. daily. 10. Lipitor 10 mg p.o. daily. REVIEW OF SYSTEMS: Constitutional: No history of chills, fever or night sweats. No history of unintentional weight loss reported. HEENT: History of frontal headaches. History of blurred vision. No history of diplopia or blindness. No history of epistaxis or hoarseness. History of chronic rhinorrhea. No history of tinnitus. History of bilateral deafness. Cardiovascular: See history of present illness. Respiratory: No history of cough, expectoration or hemoptysis. No history of tuberculosis. Gastrointestinal: History of nausea for the past 2 days. No history of vomiting. No history of melena or hematemesis. History of poor appetite. No history of abdominal pain or discomfort. History of chronic constipation. Neurological: No history of lightheadedness, dizziness, presyncope or syncope. No history of focal weakness. According to her son, she had periods of confusion. Endocrine: See history of present illness. No history of intolerance to cold or warm weather. Genitourinary: No history of dysuria, frequency, urgency or hematuria. Musculoskeletal: History of arthritis of the back. History of osteoporosis. Hematological/Lymphatic: No history of bleeding, ecchymosis or anemia. No history of lymphadenopathy. PHYSICAL EXAMINATION: General: An 88-year-old alert female was in no acute distress. No pallor, cyanosis, clubbing or jaundice. Neck: Supple. No jugular venous distention. Carotids were 2+; upstrokes were normal. No bruits were heard. There was no thyromegaly. Heart: PMI was in the 5th intercostal space. No heaves or thrills. Heart sounds were distant. S1 and S2 were normal. A grade 1/6 decrescendo systolic murmur was heard at the apex and along the lower left sternal border. No diastolic murmur or gallops were heard. Lungs: Clear on auscultation. Abdomen: Soft, nontender. No hepatosplenomegaly or palpable masses were felt. Bowel sounds were present No bruits were heard. Extremities: No calf tenderness or dependent edema. There were bilateral varicosities. Femoral pulses were 2+. Right dorsalis pedis was 1+ to 2+. Left dorsalis pedis was weak. Posterior tibial pulses could not be palpated. LABORATORY DATA: ECG of March 04, 2019, at 10:54: Supraventricular tachycardia at 186 beats per minute. Poor R-wave progression in leads V1 and V2. ST- segment depression in leads I, II, aVL, aVF, V4 to V6, consistent with ischemia. Repeat ECG at 1319: Sinus rhythm. Compared to earlier tracing, rhythm has changed as above. ST-segments are now isoelectric in both limb and precordial leads. CBC: WBC 13,400, hemoglobin 12.8 g/dL, platelet count 300,000, normal cell indices, neutrophils 80.3%, lymphocytes 12.5%, monocytes 5.7%, eosinophils 0.9%, basophils 0.6%. Chemistry: Sodium 131, potassium 3.7, chloride 93, CO2 of 30 mmol/L, BUN 26.5, creatinine 1.1 mg/dL. Random glucose of 292 mg/dL. Liver function tests were normal. CK was 386. Troponins were 0.19. Beta-hydroxybutyrate 7.9. Urinalysis revealed 1+ glucose, trace ketones, 6 WBCs, 1 RBC, 1 cast, 1.5 epithelial cells, 3084 urine bacteria. IMAGING: X-ray of the chest: Impression: No evidence of active pulmonary disease. No pneumothorax or large pleural effusion seen. CT scan of the head without contrast: Moderate atrophy. No gross evidence of focal intracranial lesion or hemorrhoid is seen. IMPRESSION: 1. Supraventricular tachycardia, currently in sinus rhythm. 2. Coronary artery disease, history of angina pectoris and suspect non-ST- segment elevation myocardial infarction related to #1. 3. Insulin-dependent diabetes mellitus, poorly controlled. 4. Urinary tract infection needs to be excluded. 5. Hypertension. 6. Hypertensive cardiovascular disease. 7. Hypothyroidism. 8. History of ventricular premature beats, currently in remission. 9. Chronic obstructive pulmonary disease. 10. History of chronic low back syndrome. 11. Bilateral deafness. 12. Suspect dehydration. 13. Urinary tract infection needs exclusion. RECOMMENDATIONS: 1. Serial EKGs and enzymes. 2. If there is progressive rise in troponin levels would suggest anticoagulation. 3. Continue cardiac medications. 4. Control of blood sugar. 5. Urine culture and sensitivity. 6. Hydration. 7. Once the patient is hydrated, consider followup chest x-ray or CT of the chest. 8. May need to increase dose of metoprolol to 50 mg p.o. daily. 9. Echocardiogram. 10. Further suggestions as necessary. PROGNOSIS: Critical. Thank you for your referral. CHERRY SOUZA M.D. [id number] MTDD
[2019-03-04] MEDS: METOPROLOL TARTRATE 50 MG TABLET (FP) PO SCH (21:31)
[2019-03-05] MEDS: INSULIN SLIDING SCALE (NOVOLOG) 1 VIAL SQ SCH ×4 (06:20→22:10)
[2019-03-05] MEDS: LEVOTHYROXINE NA 112 MCG TABLET (FP) PO SCH (06:21)
[2019-03-05] MEDS ORDERED: glipiZIDE 5 MG TABLET (FP) PO SCH (10:00)
[2019-03-05] MEDS ORDERED: ASPIRIN 81 MG CHEWABLE TABLETS ONE (10:14)
[2019-03-05] MEDS: ASPIRIN 81 MG CHEWABLE TABLETS PO SCH (10:15)
[2019-03-05] MEDS: LOSARTAN POTASSIUM 25 MG TABLET PO SCH (10:15)
[2019-03-05] MEDS: METOPROLOL TARTRATE 50 MG TABLET (FP) PO SCH ×2 (10:15→22:10)
--- NOTE | 2019-03-05 11:18 | PN ---
Progress Note (short form) - Note Progress Note: Wants to leave Confused Vital Signs - 24 hr 03/04/19 03/04/19 03/04/19 11:28 11:29 12:15 Temperature Pulse Rate Pulse Rate [ 96 H 86 Apical] Respiratory 18 20 Rate Blood Pressure Blood Pressure 109/53 L 141/77 [Right Arm] O2 Sat by Pulse 100 92 L 100 Oximetry (%) 03/04/19 03/04/19 03/04/19 16:11 16:48 21:00 Temperature 98.1 F 98.3 F Pulse Rate 89 Pulse Rate [ 86 Apical] Respiratory 20 18 Rate Blood Pressure 179/73 H Blood Pressure 166/74 [Right Arm] O2 Sat by Pulse 100 100 99 Oximetry (%) 03/05/19 03/05/19 03/05/19 02:00 06:00 09:00 Temperature 99.1 F Pulse Rate 78 88 Pulse Rate [ Apical] Respiratory 18 20 Rate Blood Pressure 140/61 167/80 Blood Pressure [Right Arm] O2 Sat by Pulse 96 Oximetry (%) 03/05/19 10:00 Temperature Pulse Rate 105 H Pulse Rate [ Apical] Respiratory 18 Rate Blood Pressure 137/66 Blood Pressure [Right Arm] O2 Sat by Pulse Oximetry (%) Current Medications Generic Name Dose Route Start Last Admin Trade Name Freq PRN Reason Stop Dose Admin Aspirin 81 mg 03/05/19 10:00 03/05/19 10:15 Asa - PO 81 mg DAILY HERNANDO Administration Atorvastatin Calcium 10 mg 03/05/19 22:00 Lipitor - PO HS HERNANDO Glipizide 20 mg 03/05/19 10:00 Glucotrol - PO DAILY [facility] Ceftriaxone Sodium 1,000 mg/ 50 mls @ 100 mls/hr 03/05/19 11:30 Dextrose IVPB DAILY HERNANDO Sodium Chloride 1,000 mls @ 100 mls/hr 03/05/19 11:30 Normal Saline - IV ASDIR HERNANDO Insulin Aspart 1 vial 03/04/19 16:30 03/05/19 06:20 Novolog Vial Sliding Scale - SQ 6 units ACHS HERNANDO Administration Protocol Insulin Detemir 16 units 03/04/19 16:30 03/04/19 16:22 Levemir Vial SQ Not Given ACDIN HERNANDO Levothyroxine Sodium 112 mcg 03/05/19 07:00 03/05/19 06:21 Synthroid - PO 112 mcg AM HERNANDO Administration Losartan Potassium 25 mg 03/05/19 10:00 03/05/19 10:15 Cozaar - PO 25 mg DAILY HERNANDO Administration Metoprolol Tartrate 50 mg 03/04/19 22:00 03/05/19 10:15 Lopressor - PO 50 mg BID HERNANDO Administration Laboratory Results - last 24 hr 03/04/19 03/04/19 03/04/19 11:18 11:18 11:18 WBC RBC Hgb Hct MCV MCH MCHC RDW Plt Count MPV Absolute Neuts (auto) Neutrophils % Lymphocytes % Monocytes % Eosinophils % Basophils % Nucleated RBC % PT with INR 11.60 INR 0.98 PTT (Actin FS) 27.6 Sodium 131 L Potassium 3.7 Chloride 93 L Carbon Dioxide 30 Anion Gap 9 BUN 26.5 H Creatinine 1.1 Est GFR (CKD-EPI)AfAm 51.55 Est GFR (CKD-EPI)NonAf 44.48 POC Glucometer Random Glucose 292 H Calcium 9.4 Total Bilirubin 0.6 AST 36 ALT 25 Alkaline Phosphatase 98 Creatine Kinase 386 H Creatine Kinase Index 1.1 CK-MB (CK-2) 4.5 H Troponin I 0.19 H Total Protein 7.0 Albumin 3.6 Beta-Hydroxybutyrate 7.9 H TSH 0.26 L Urine Color Urine Appearance Urine pH Ur Specific [place] Urine Protein Urine Glucose (UA) Urine Ketones Urine Blood Urine Nitrite Urine Bilirubin Urine Urobilinogen Ur Leukocyte Esterase Urine WBC (Auto) Urine RBC (Auto) Urine Casts (Auto) U Epithel Cells (Auto) Urine Bacteria (Auto) 03/04/19 03/04/19 03/04/19 11:18 14:17 15:37 WBC 13.4 H RBC 4.18 Hgb 12.8 Hct 38.7 MCV 92.6 MCH 30.7 MCHC 33.2 RDW 14.1 Plt Count 300 D MPV 10.2 Absolute Neuts (auto) 10.7 H Neutrophils % 80.3 D Lymphocytes % 12.5 D Monocytes % 5.7 Eosinophils % 0.9 Basophils % 0.6 Nucleated RBC % 0 PT with INR INR PTT (Actin FS) Sodium Potassium Chloride Carbon Dioxide Anion Gap BUN Creatinine Est GFR (CKD-EPI)AfAm Est GFR (CKD-EPI)NonAf POC Glucometer Random Glucose Calcium Total Bilirubin AST ALT Alkaline Phosphatase Creatine Kinase 262 H Creatine Kinase Index 1.5 CK-MB (CK-2) 4.1 H Troponin I 0.30 H Total Protein Albumin Beta-Hydroxybutyrate TSH Urine Color Yellow Urine Appearance Clear Urine pH 7.5 D Ur Specific [place] 1.013 Urine Protein Negative Urine Glucose (UA) 1+ H Urine Ketones Trace H Urine Blood Negative Urine Nitrite Negative Urine Bilirubin Negative Urine Urobilinogen 1.0 Ur Leukocyte Esterase Trace Urine WBC (Auto) 6 Urine RBC (Auto) 1 Urine Casts (Auto) 1 U Epithel Cells (Auto) 1.5 Urine Bacteria (Auto) 3084.0 03/04/19 03/04/19 03/05/19 16:08 21:02 05:59 WBC RBC Hgb Hct MCV MCH MCHC RDW Plt Count MPV Absolute Neuts (auto) Neutrophils % Lymphocytes % Monocytes % Eosinophils % Basophils % Nucleated RBC % PT with INR INR PTT (Actin FS) Sodium Potassium Chloride Carbon Dioxide Anion Gap BUN Creatinine Est GFR (CKD-EPI)AfAm Est GFR (CKD-EPI)NonAf POC Glucometer 221 348 273 Random Glucose Calcium Total Bilirubin AST ALT Alkaline Phosphatase Creatine Kinase Creatine Kinase Index CK-MB (CK-2) Troponin I Total Protein Albumin Beta-Hydroxybutyrate TSH Urine Color Urine Appearance Urine pH Ur Specific [place] Urine Protein Urine Glucose (UA) Urine Ketones Urine Blood Urine Nitrite Urine Bilirubin Urine Urobilinogen Ur Leukocyte Esterase Urine WBC (Auto) Urine RBC (Auto) Urine Casts (Auto) U Epithel Cells (Auto) Urine Bacteria (Auto) S1 s2 RRR Lungs clear Abd-soft, NT No edema PLAn start IV ceftriaxone-- UTI IV fluids rate is better controlled monitor sugars Check cardiac enzymes spoke with cardiology Problem List - Problems (1) UTI (urinary tract infection) Code(s): N39.0 - URINARY TRACT INFECTION, SITE NOT SPECIFIED (2) Demand ischemia Code(s): I24.8 - OTHER FORMS OF ACUTE ISCHEMIC HEART DISEASE (3) Metabolic encephalopathy Code(s): G93.41 - METABOLIC ENCEPHALOPATHY (4) Atrial fibrillation with RVR Code(s): I48.91 - UNSPECIFIED ATRIAL FIBRILLATION
[2019-03-05] MEDS: SODIUM CHLORIDE 1,000 ML IV SCH (11:51)
[2019-03-05] MEDS ORDERED: cefTRIAXone SODIUM 1 GM VIAL ONE (11:54)
[2019-03-05] MEDS ORDERED: DEXTROSE 5%-WATER - 50 ML IVPB ONE (11:55)
[2019-03-05] MEDS: CEFTRIAXONE 1 GM in DEXTROSE 5%-WATER - 50 ML IVPB SCH (12:07)
--- NOTE | 2019-03-05 12:39 | EKG ---
Test Reason : Blood Pressure : / mmHG Vent. Rate : 081 BPM Atrial Rate : 081 BPM P-R Int : 158 ms QRS Dur : 084 ms QT Int : 394 ms P-R-T Axes : 093 014 061 degrees QTc Int : 457 ms POOR DATA QUALITY, INTERPRETATION MAY BE ADVERSELY AFFECTED NORMAL SINUS RHYTHM NORMAL ECG WHEN COMPARED WITH ECG OF 04-MAR-2019 10:54, VENT. RATE HAS DECREASED BY [address] NO LONGER DEPRESSED IN INFERIOR LEADS ST NO LONGER DEPRESSED IN ANTEROLATERAL LEADS NONSPECIFIC T WAVE ABNORMALITY NO LONGER EVIDENT IN INFERIOR LEADS T WAVE INVERSION NO LONGER EVIDENT IN LATERAL LEADS Confirmed by DOMINGA PEREZ, NATE ([id number]) on 03/05/2019 12:39:45 PM Referred By: Confirmed By:NATE ORR MD
[2019-03-05 13:05] LABS: ALBUMIN 2.9 g/dl (3.4-5.0); BILIRUBIN,TOTAL 0.5 mg/dL (0.2-1); BLOOD UREA NITROGEN 16.5 mg/dL (7-18); CALCIUM 8.6 mg/dL (8.5-10.1); CREATININE 0.8 mg/dL (0.55-1.3); POTASSIUM 3.9 mmol/L (3.5-5.1); TOT PROT 5.7 g/dl (6.4-8.2)
[2019-03-05 13:10] LABS: BASO % 0.3 % (0-2.0); HEMATOCRIT 36.1 % (32.4-45.2); HEMOGLOBIN 11.5 GM/dL (10.7-15.3); LYMPH % 15.3 % (8-40); MCH 29.5 pg (25.7-33.7); MCHC 31.8 g/dl (32.0-36.0); MEAN CELL VOLUME 92.7 fl (80-96); MEAN PLT VOLUME 9.5 fl (7.5-11.1); MONO % 8.3 % (3.8-10.2); NEUT % 75.1 % (42.8-82.8); PLATELET COUNT 268 K/MM3 (134-434); RBC 3.89 M/mm3 (3.60-5.2); RDW 14.1 % (11.6-15.6); WHITE BLOOD COUNT 10.8 K/mm3 (4.0-10.0)
[2019-03-05] MEDS: INSULIN (LEVEMIR) 100 UNITS/ML UNITS SQ SCH (16:34)
--- NOTE | 2019-03-05 18:50 | PN ---
Progress Note (short form) - Note Progress Note: Patient denies having chest pain or discomfort she is alert and there is no history of dyspnea. She was insisting on going home but has been advised by PCP that she has a UTI and needs to be treated on an inpatient basis. No history of chest pain or discomfort either at rest or with exertion. No palpitations, lightheadedness, dizziness presyncope or syncope reported. Active Medications Aspirin (Asa -) 81 mg PO DAILY [facility] Last Admin: 03/05/19 10:15 Dose: 81 mg Atorvastatin Calcium (Lipitor -) 10 mg PO HS HERNANDO Glipizide (Glucotrol -) 20 mg PO DAILY [facility] Ceftriaxone Sodium 1 gm/ (Dextrose) 50 mls @ 100 mls/hr IVPB DAILY [facility] Last Admin: 03/05/19 12:07 Dose: 100 mls/hr Sodium Chloride (Normal Saline -) 1,000 mls @ 100 mls/hr IV ASDIR [facility] Last Admin: 03/05/19 11:51 Dose: 100 mls/hr Insulin Aspart (Novolog Vial Sliding Scale -) 1 vial SQ ACHS [facility]; Protocol Last Admin: 03/05/19 16:35 Dose: 6 units Insulin Detemir (Levemir Vial) 16 units SQ ACDIN [facility] Last Admin: 03/05/19 16:34 Dose: 16 unit Levothyroxine Sodium (Synthroid -) 112 mcg PO AM [facility] Last Admin: 03/05/19 06:21 Dose: 112 mcg Losartan Potassium (Cozaar -) 25 mg PO DAILY [facility] Last Admin: 03/05/19 10:15 Dose: 25 mg Metoprolol Tartrate (Lopressor -) 50 mg PO BID [facility] Last Admin: 03/05/19 10:15 Dose: 50 mg 88-year-old female was in no distress,afebrile, no pallor, cyanosis, clubbing or jaundice. Last Vital Signs Temp Pulse Resp BP Pulse Ox 98.9 F 89 17 129/57 L 96 03/05/19 14:00 03/05/19 18:00 03/05/19 18:00 03/05/19 18:00 03/05/19 14:00 NECK: Supple, no jugular venous distention, carotids were equal and upstrokes were normal, no bruits were heard and no thyromegaly was present. HEART:PMI was in the fifth intercostal space, no heaves or thrills, S1 and S2 were normal, grade II/ decrescendo systolic murmur was heard along the left st LUNGS: Clear on auscultation. ABDOMEN: Soft, nontender, no hepatosplenomegaly or palpable masses were felt. Bowel sounds are present, no bruits were heard. EXTREMITIES: no calf tenderness or dependent edema. Troponin, BNP 03/05/19 12:08 Troponin I 0.12 H Laboratory Results - last 24 hr 03/04/19 03/05/19 03/05/19 21:02 05:59 11:26 WBC RBC Hgb Hct MCV MCH MCHC RDW Plt Count MPV Absolute Neuts (auto) Neutrophils % Lymphocytes % Monocytes % Eosinophils % Basophils % Nucleated RBC % Sodium Potassium Chloride Carbon Dioxide Anion Gap BUN Creatinine Est GFR (CKD-EPI)AfAm Est GFR (CKD-EPI)NonAf POC Glucometer 348 273 282 Random Glucose Calcium Total Bilirubin AST ALT Alkaline Phosphatase Creatine Kinase Creatine Kinase Index CK-MB (CK-2) Troponin I Total Protein Albumin Free T4 03/05/19 03/05/19 03/05/19 12:08 12:59 16:10 WBC 10.8 H RBC 3.89 Hgb 11.5 Hct 36.1 MCV 92.7 MCH 29.5 MCHC 31.8 L RDW 14.1 Plt Count 268 MPV 9.5 Absolute Neuts (auto) 8.1 H Neutrophils % 75.1 Lymphocytes % 15.3 D Monocytes % 8.3 Eosinophils % 1.0 Basophils % 0.3 Nucleated RBC % 0 Sodium 131 L Potassium 3.9 Chloride 96 L Carbon Dioxide 25 Anion Gap 11 BUN 16.5 Creatinine 0.8 Est GFR (CKD-EPI)AfAm 75.76 Est GFR (CKD-EPI)NonAf 65.36 POC Glucometer 295 Random Glucose 266 H Calcium 8.6 Total Bilirubin 0.5 AST 17 ALT 20 Alkaline Phosphatase 84 Creatine Kinase 153 Creatine Kinase Index 1.4 CK-MB (CK-2) 2.2 Troponin I 0.12 H Total Protein 5.7 L Albumin 2.9 L Free T4 1.23 Microbiology 03/04/19 14:17 Urine Culture - Preliminary Urine - Urine Clean Catch Lactose Fermenting Neg Bacilli Non Lactose Fermenting Gnb Impression: 1. Supraventricular tachycardia, resolved. 2. Coronary artery disease, demand injury precipitated by # 1. 3. Urinary tract infection. 4. Uncontrolled diabetes mellitus most likely precipitated by #3 5. Hypertension, hypertensive cardiovascular disease. 6. Hypercholesterolemia. Recommendations: 1. Continue current medications. 2. Add isosorbide mononitrate 30 mg by mouth daily. 3. Follow ECG and troponin levels. Billy Valentin MD. Prognosis: Guarded.
[2019-03-05] MEDS ORDERED: ATORVASTATIN CA 10 MG TABLET (FP) PO SCH (22:00)
[2019-03-06] MEDS: LEVOTHYROXINE NA 112 MCG TABLET (FP) PO SCH (06:30)
[2019-03-06] MEDS: INSULIN SLIDING SCALE (NOVOLOG) 1 VIAL SQ SCH ×2 (06:30→11:58)
[2019-03-06 06:38] LABS: BASO % 0.5 % (0-2.0); EOS % 5.1 % (0-4.5); HEMATOCRIT 32.4 % (32.4-45.2); HEMOGLOBIN 10.9 GM/dL (10.7-15.3); LYMPH % 26.6 % (8-40); MCH 30.8 pg (25.7-33.7); MCHC 33.7 g/dl (32.0-36.0); MEAN CELL VOLUME 91.4 fl (80-96); MEAN PLT VOLUME 9.6 fl (7.5-11.1); MONO % 12.3 % (3.8-10.2); NEUT % 55.5 % (42.8-82.8); PLATELET COUNT 219 K/MM3 (134-434); RBC 3.54 M/mm3 (3.60-5.2); RDW 13.7 % (11.6-15.6); WHITE BLOOD COUNT 6.3 K/mm3 (4.0-10.0)
[2019-03-06 07:05] LABS: ALBUMIN 2.6 g/dl (3.4-5.0); BILIRUBIN,TOTAL 0.4 mg/dL (0.2-1); BLOOD UREA NITROGEN 12.6 mg/dL (7-18); CALCIUM 8.6 mg/dL (8.5-10.1); CREATININE 0.8 mg/dL (0.55-1.3); MAGNESIUM 1.6 mg/dL (1.8-2.4); POTASSIUM 3.8 mmol/L (3.5-5.1); TOT PROT 5.2 g/dl (6.4-8.2)
[2019-03-06] MEDS ORDERED: cefTRIAXone SODIUM 1 GM VIAL ONE (09:02)
[2019-03-06] MEDS ORDERED: DEXTROSE 5%-WATER - 50 ML IVPB ONE (09:02)
[2019-03-06] MEDS: CEFTRIAXONE 1 GM in DEXTROSE 5%-WATER - 50 ML IVPB SCH (09:03)
[2019-03-06] MEDS: LOSARTAN POTASSIUM 25 MG TABLET PO SCH (09:03)
[2019-03-06] MEDS: ASPIRIN 81 MG CHEWABLE TABLETS PO SCH (09:03)
[2019-03-06] MEDS: METOPROLOL TARTRATE 50 MG TABLET (FP) PO SCH (09:03)
[2019-03-06] MEDS: SODIUM CHLORIDE 1,000 ML IV SCH (11:59)
--- NOTE | 2019-03-06 12:33 | DS ---
Physical Examination Vital Signs: Vital Signs Temperature 98.1 F 03/06/19 05:41 Pulse Rate 85 03/06/19 05:41 Respiratory Rate 20 03/06/19 05:41 Blood Pressure 149/71 03/06/19 05:41 O2 Sat by Pulse Oximetry (%) 99 03/05/19 21:00 Findings/Remarks: Pt seen/ examined chart reviewed feels well family at bedside denies cp/sob/abd pain Constitutional: Yes: No Distress Eyes: Yes: Conjunctiva Clear Neck: Yes: Trachea Midline Cardiovascular: Yes: Regular Rate and Rhythm Respiratory: Yes: CTA Bilaterally Gastrointestinal: Yes: Soft Edema: No Neurological: Yes: Alert Psychiatric: Yes: Alert Labs: CBC, BMP 03/06/19 06:03 03/06/19 06:03 Discharge Summary Problems reviewed: Yes Reason For Visit: ATRIAL FIB W RAPID VENTRICULAR RESPONSE Current Active Problems Atrial fibrillation with RVR (Acute) Demand ischemia (Acute) Metabolic encephalopathy (Acute) SVT (supraventricular tachycardia) (Acute) UTI (urinary tract infection) (Acute) Hospital Course: The patient is a 88 year old female with a significant PMH of DM (insulin 4x a day), CAD, HTN, HLD, hypothyroidism, colon cancer who presents to the emergency department for rapid heart rate in the 180s. Better stable for d/c also treated for uti-- will d/c on po abx close f/u with Dr. Blood-Next week advised Meds reconcilled Prescribed as needed d/w pts family also Condition: Good - Instructions Referrals: Jasmine Blood MD [Primary Care Provider] - Disposition: HOME - Home Medications Comprehensive Discharge Medication List: Ambulatory Orders Glipizide [Glucotrol -] 5 mg PO TID 01/10/12 Insulin (Levemir) [Levemir Flexpen -] 10 units SQ HS 01/10/12 Insulin (Novolog) [Novolog Flexpen -] 4 units SQ AC 01/10/12 Losartan Potassium 25 mg PO DAILY 01/10/12 Atorvastatin Calcium [Lipitor] 10 mg PO HS 11/27/12 Aspirin [ASA -] 81 mg PO DAILY #0 01/28/14 Isosorbide Mononitrate [Isosorbide Mononitrate ER] 120 mg PO DAILY 03/04/19 Levothyroxine [Synthroid -] 125 mcg PO DAILY 03/04/19 Sitagliptin Phos/Metformin HCl [Janumet 50-500 mg Tablet] 1 tab PO DAILY Levofloxacin [Levaquin] 500 mg PO DAILY #5 tablet 03/06/19 Metoprolol Tartrate [Lopressor -] 50 mg PO BID tablet 03/06/19
[2019-03-06 12:36] VITALS: BP 139/86; PULSE 75; TEMP 98
--- NOTE | 2019-03-06 15:12 | PN ---
Progress Note (short form) - Note Progress Note: Patient denies having chest pain or discomfort she is alert and there is no history of dyspnea. She was insisting on going home but has been advised by PCP that she has a UTI and needs to be treated on an inpatient basis. No history of chest pain or discomfort either at rest or with exertionand according to her daughter discharge is being contemplated either today or tomorrow. No palpitations, lightheadedness, dizziness presyncope or syncope reported. 88-year-old female was in no distress,afebrile, no pallor, cyanosis, clubbing or jaundice. Last Vital Signs Temp Pulse Resp BP Pulse Ox 98 F 75 20 139/86 100 03/06/19 09:00 03/06/19 09:00 03/06/19 09:00 03/06/19 09:00 03/06/19 09:00 NECK: Supple, no jugular venous distention, carotids were equal and upstrokes were normal, no bruits were heard and no thyromegaly was present. HEART:PMI was in the fifth intercostal space, no heaves or thrills, S1 and S2 were normal, grade II/ decrescendo systolic murmur was heard along the left st LUNGS: Clear on auscultation. ABDOMEN: Soft, nontender, no hepatosplenomegaly or palpable masses were felt. Bowel sounds are present, no bruits were heard. EXTREMITIES: no calf tenderness or dependent edema. CBC, BMP 03/06/19 06:03 03/06/19 06:03 Impression: 1. Supraventricular tachycardia, resolved. 2. Coronary artery disease, demand injury precipitated by # 1. 3. Urinary tract infection. 4. Uncontrolled diabetes mellitus most likely precipitated by #3 5. Hypertension, hypertensive cardiovascular disease. 6. Hypercholesterolemia. Recommendations: 1. Continue current medications. 2. Add isosorbide mononitrate 30 mg by mouth daily. 3. Follow ECG and troponin levels. 4. Detailed discussion with her daughter who is a nurse regarding further evaluation and management of supraventricular tachycardia. 5. If patient was to experience recurrence of supraventricular tachycardia further evaluation and possible RFA needs consideration. 6. She is aware of her dietary restrictions. 7. Her daughter was told that patient should make an appointment with the office as soon as possiblefor follow-up. Billy Valentin MD.
--- NOTE | 2019-03-08 20:30 | EKG ---
Test Reason : Blood Pressure : / mmHG Vent. Rate : 186 BPM Atrial Rate : 192 BPM P-R Int : 122 ms QRS Dur : 082 ms QT Int : 236 ms P-R-T Axes : 037 009 191 degrees QTc Int : 415 ms SUPRAVENTRICULAR TACHYCARDIA SEPTAL INFARCT , AGE UNDETERMINED MARKED ST ABNORMALITY, POSSIBLE INFEROLATERAL SUBENDOCARDIAL INJURY ABNORMAL ECG WHEN COMPARED WITH ECG OF 09-SEP-2017 17:26, SIGNIFICANT CHANGES HAVE OCCURRED Confirmed by DANIELLE WOMACK MD ([id number]) on 03/08/2019 8:30:20 PM Referred By: Confirmed By:DANIELLE WOMACK MD
== END 2019-03-06 13:30 | disposition home or self-care (01) | DRG 308 ==
LOC: JER 10:31 → JERBED 13:41 → J4W 16:39
PROVIDERS: ADMIT Internal Medicine; ATTEND Internal Medicine
DX: I47.1 Supraventricular tachycardia (principal); G93.41 Metabolic encephalopathy; I24.8 Other forms of acute ischemic heart disease; N39.0 Urinary tract infection, site not specified; I48.91 Unspecified atrial fibrillation; I25.10 Atherosclerotic heart disease of native coronary artery without angina pectoris; E78.5 Hyperlipidemia, unspecified; E03.9 Hypothyroidism, unspecified; Z85.038 Personal history of other malignant neoplasm of large intestine; B96.20 Unspecified Escherichia coli [E. coli] as the cause of diseases classified elsewhere; E11.65 Type 2 diabetes mellitus with hyperglycemia; I11.9 Hypertensive heart disease without heart failure
CPT/HCPCS: 36415; 70450-TC; 71045-TC-FY; 80053; 81003; 82010; 82550; 82553; 82962; 83036; 83735; 84439; 84443; 84484; 85025; 85610; 85730; 87086; 87186; 90670; 93005; 93010; 99285-25; J7030